=== PATIENT | male | born 1945 | race Caucasian/White ===

== ENCOUNTER 2020-05-24 13:43 | Inpatient (IN) | payer MEDICARE, OTHER ==
[~2020-05-24] VITALS: Ht 180.3 cm; Wt 99.8 kg
--- NOTE | 2020-05-24 18:30 | NUR ---
Pt arrived in [facility] via gurney, awake AOx4, on RA with no SOB or distress noted at this time. Complained of lower back pain s/p lumbar surgery. Oriented to room and unit policy. Call light within reach and belongings and walker at bedside. Bed locked in lowest position with siderails 2x up. Endorsed to automobile body repairer nurse
[2020-05-24] MEDS ORDERED: CLON0.1T PO (19:13)
[2020-05-24] MEDS ORDERED: LORA10TA7 PO (19:13)
[2020-05-24] MEDS ORDERED: GABA-532 PO (19:13)
[2020-05-24] MEDS ORDERED: TAMS-3 PO (19:13)
[2020-05-24] MEDS ORDERED: ALBU90AE2 INH (19:13)
[2020-05-24] MEDS ORDERED: FINA5TAB3 PO (19:13)
[2020-05-24] MEDS ORDERED: LACT1CAP73 PO (19:13)
[2020-05-24] MEDS ORDERED: MELA3TAB41 PO (19:13)
[2020-05-24] MEDS ORDERED: BACL10TA PO (19:13)
[2020-05-24] MEDS ORDERED: PANT40TA2 PO (19:13)
[2020-05-24] MEDS ORDERED: BIMA2.5D5 EACHEYE (19:13)
[2020-05-24] MEDS ORDERED: SENN-261 PO (19:13)
[2020-05-24] MEDS ORDERED: ATOR40TA PO (19:13)
[2020-05-24] MEDS ORDERED: OXYC1TAB12 PO (19:13)
[2020-05-24] MEDS ORDERED: OXCA150T5 PO (19:13)
[2020-05-24] MEDS ORDERED: CARV6.252 PO (19:13)
[2020-05-24] MEDS ORDERED: UMEC1BLS IH (19:13)
[2020-05-24] MEDS ORDERED: AMLO5TAB9 PO (19:13)
[2020-05-24] MEDS ORDERED: FERR325T28 PO (19:13)
[2020-05-24] MEDS ORDERED: FLUO40CA8 PO (19:13)
[2020-05-24] MEDS ORDERED: METF-494 PO (19:13)
[2020-05-24] MEDS ORDERED: BISA10SU61 RC (19:39)
[2020-05-24] MEDS ORDERED: ACET-2154 PO (19:39)
[2020-05-24] MEDS ORDERED: Z GUARD REMEDY PASTE 57 GM TUBE TOP PRN (20:45)
[2020-05-24 21:04] VITALS: BP 123/70
[2020-05-24] MEDS ORDERED: OXYCODONE/APAP 5-325 MG TABLET PO PRN (21:15)
[2020-05-24] MEDS: ATORVASTATIN 40 MG TABLET PO SCH (21:33)
[2020-05-24] MEDS: FINASTERIDE 5 MG TABLET PO SCH (21:33)
[2020-05-24] MEDS: LORATADINE 10 MG TABLET PO SCH (21:34)
[2020-05-24] MEDS: PANTOPRAZOLE SODIUM 40 MG TABLET.DR PO SCH (21:34)
[2020-05-24] MEDS: GABAPENTIN 300 MG CAPSULE PO SCH (21:34)
--- NOTE | 2020-05-24 21:43 | NUR ---
Received pt resting in bed and watching tv. AAO x3-4. No acute distress noted. Pertinent assessment done. Pt oriented to room and equipment. MRSA swab done. Provided dinner. Notified Dr. Harmon of admission, order to continue all meds. Dr. Bates also notified, new order to change pain medication from Percocet to oxycodone IR 10mg Q4H PRN instead. Safety measures maintained. Call light and personal items within reach. Will continue to monitor.
[2020-05-24] MEDS: OXYCODONE HCL 5 MG TABLET PO PRN (21:51)
[2020-05-25 05:06] VITALS: BP 125/75
[2020-05-25] MEDS: OXYCODONE HCL 5 MG TABLET PO PRN ×4 (05:19→21:05)
[2020-05-25 08:00] VITALS: BP 124/67
[2020-05-25] MEDS: GABAPENTIN 300 MG CAPSULE PO SCH ×2 (09:05→16:52)
[2020-05-25] MEDS: PANTOPRAZOLE SODIUM 40 MG TABLET.DR PO SCH ×2 (09:05→16:53)
--- NOTE | 2020-05-25 11:00 | NUR ---
Received patient in bed, patient is AAO x 4, NO acute distress noted, in RA. Vital signs stable. Patient able to express needs. S/P L4-S1 Laminectomy, Incision site on mid lower back with steri-strips and covered with dressing. Patient seen by MD with lab orders in AM and medications reconciled. Due morning meds administered, patient requested for pain pill before PT/OT, pt. administered OXYIR 10mg q 4hrs PRN and effective. Patient assisted with ADLs, safety measures in place, call light left at bed side and will continue with care.
[2020-05-25] MEDS ORDERED: CLONIDINE HCL 0.1 MG TABLET PO PRN (13:00)
[2020-05-25] MEDS ORDERED: BISACODYL 10 MG SUPP.RECT RC PRN (13:00)
[2020-05-25] MEDS ORDERED: BACLOFEN 10 MG TABLET PO PRN (13:00)
[2020-05-25] MEDS: IPRATROPIUM BROMIDE 0.5 MG/2.5 ML NEBU NEB SCH ×2 (15:33→19:22)
[2020-05-25] MEDS: ALBUTEROL SULFATE 2.5 MG/ 0.5 ML NEBU NEB SCH ×2 (15:33→19:22)
[2020-05-25 15:44] VITALS: BP 145/81
[2020-05-25] MEDS ORDERED: Medication Not On Formulary EA (Oxycodone Hcl/Acetaminophen (Oxycodone-Apap 10-325 Mg Ta PO SCH (16:00)
[2020-05-25] MEDS: TAMSULOSIN HCL 0.4 MG CAP.SR.24H PO SCH (16:52)
[2020-05-25] MEDS: ACIDOPHILUS/BULGARICUS CHEW TAB PO SCH (16:52)
[2020-05-25] MEDS: ACETAMINOPHEN 325 MG TABLET PO PRN (16:53)
[2020-05-25] MEDS: OXCARBAZEPINE 150 MG TABLET PO SCH (16:53)
[2020-05-25] MEDS ORDERED: GABAPENTIN 100 MG CAPSULE PO SCH (17:00)
[2020-05-25] MEDS: CARVEDILOL 6.25 MG TABLET PO SCH (17:06)
[2020-05-25 20:00] VITALS: BP 117/68
[2020-05-25] MEDS ORDERED: ATORVASTATIN 40 MG TABLET PO SCH (21:00)
[2020-05-25] MEDS ORDERED: FINASTERIDE 5 MG TABLET PO SCH (21:00)
[2020-05-25] MEDS ORDERED: LORATADINE 10 MG TABLET PO SCH (21:00)
[2020-05-25] MEDS: LATANOPROST OPHT DROP 2.5 ML BOTTLE OP SCH (21:06)
[2020-05-25] MEDS: ATORVASTATIN 40 MG TABLET PO SCH (21:06)
[2020-05-25] MEDS: FINASTERIDE 5 MG TABLET PO SCH (21:07)
[2020-05-25] MEDS: LORATADINE 10 MG TABLET PO SCH (21:07)
[2020-05-25] MEDS: MELATONIN 3 MG TABLET PO SCH (21:07)
--- NOTE | 2020-05-25 21:30 | NUR ---
Received patient in bed, patient is AAO x 4, NO acute distress noted, no SOb noted on RA. Vital signs stable. Patient able to express needs. Due medications administered, patient requested for pain pill, administered OXY 10mg PRN. All needs attended to, kept comfortable. Safety measures in place, call light left at bed side and will continue with care.
[2020-05-26] MEDS: IPRATROPIUM BROMIDE 0.5 MG/2.5 ML NEBU NEB SCH ×4 (01:30→19:28)
[2020-05-26] MEDS: ALBUTEROL SULFATE 2.5 MG/ 0.5 ML NEBU NEB SCH ×4 (01:30→19:28)
[2020-05-26 04:00] VITALS: BP 118/71
[2020-05-26] MEDS: OXYCODONE HCL 5 MG TABLET PO PRN ×4 (05:37→20:18)
[2020-05-26 06:01] LABS: BASOPHILS % (AUTO) 0.4 % (0.0-2.0); EOSINOPHILS # (AUTO) 0.3 K/uL (0.0-0.7); EOSINOPHILS % (AUTO) 3.3 % (0.0-7.0); HEMATOCRIT 22.7 % (36.7-47.1); HEMOGLOBIN 7.5 g/dL (12.5-16.3); LYMPHOCYTES # (AUTO) 1.7 K/uL (20.0-40.0); LYMPHOCYTES % (AUTO) 22.1 % (20.5-51.5); MEAN CORPUSCULAR HEMOGLOBIN 30.2 uug (23.8-33.4); MEAN CORPUSCULAR HGB CONC 33 g/dL (32.5-36.3); MEAN CORPUSCULAR VOLUME 91.7 fL (73.0-96.2); MONOCYTES # (AUTO) 1.1 K/uL (2.0-10.0); MONOCYTES % (AUTO) 14.7 % (0.0-11.0); NEUTROPHILS # (AUTO) 4.5 K/uL (1.8-8.9); NEUTROPHILS % (AUTO) 59.5 % (38.5-71.5); PLATELET COUNT (AUTO) 183 K/uL (152-348); WHITE BLOOD COUNT (AUTO) 7.5 K/uL (3.6-10.2)
[2020-05-26 06:37] LABS: RED BLOOD CELL COUNT(AUTO) 2.47 MIL/uL (4.06-5.63)
[2020-05-26 06:57] LABS: CARBON DIOXIDE 24 mmol/L (21-32); CHLORIDE 101 mmol/L (98-107); CREATININE 1.4 mg/dL (0.6-1.3); FERRITIN 467 ng/mL (26-388); GLUCOSE 112 mg/dL (74-106); MAGNESIUM 1.7 mg/dL (1.8-2.4); PHOSPHOROUS 4.2 mg/dL (2.5-4.9); POTASSIUM 4.9 mmol/L (3.5-5.1); UREA NITROGEN, BLOOD 30 mg/dL (7-18)
[2020-05-26] MEDS ORDERED: PANTOPRAZOLE SODIUM 40 MG TABLET.DR PO SCH (07:30)
[2020-05-26 08:00] VITALS: BP 121/67
[2020-05-26 08:07] LABS: IRON, SERUM 13 ug/dL (50-175)
[2020-05-26] MEDS: FLUOXETINE HCL 20 MG CAPSULE PO SCH (08:30)
[2020-05-26] MEDS: GABAPENTIN 300 MG CAPSULE PO SCH ×2 (08:30→16:37)
[2020-05-26] MEDS: ACIDOPHILUS/BULGARICUS CHEW TAB PO SCH ×2 (08:30→16:37)
[2020-05-26] MEDS: TAMSULOSIN HCL 0.4 MG CAP.SR.24H PO SCH ×2 (08:30→16:37)
[2020-05-26] MEDS: ACETAMINOPHEN 325 MG TABLET PO PRN ×2 (08:31→21:37)
[2020-05-26] MEDS: CARVEDILOL 6.25 MG TABLET PO SCH ×2 (08:32→18:23)
[2020-05-26] MEDS: OXCARBAZEPINE 150 MG TABLET PO SCH ×2 (08:32→16:40)
[2020-05-26] MEDS: AMLODIPINE 5 MG TABLET PO SCH (08:32)
[2020-05-26] MEDS: METFORMIN XR 500 MG TAB.SR.24H PO SCH (08:33)
[2020-05-26] MEDS ORDERED: FERROUS SULFATE 325 MG TABEC PO SCH (09:00)
[2020-05-26] MEDS ORDERED: MAGNESIUM OXIDE 400 MG TABLET PO ONE (09:30)
[2020-05-26] MEDS: PANTOPRAZOLE SODIUM 40 MG TABLET.DR PO SCH ×2 (11:09→16:37)
[2020-05-26] MEDS ORDERED: SOD FERRIC GLUC COMPLX/SUCROSE 125 MG in IV NORMAL SALINE 100 ML IV SCH (14:00)
--- NOTE | 2020-05-26 15:55 | NUR ---
Pt received resting in bed, assessed, AOx4, no acute distress, and no SOB. Pt requested pain medication, PRN Oxy 10 mg administered as ordered following therapy. Therapist assisted Pt to shower, original dressed waterproofed, kept clean, dry, and intact. Back brace applied for transfers. Pt compliant with therapies as offered and cooperative with scheduled medication.Pt able to make needs known. All comfort and safety measures implemented. 22 linda IV started on right hand for newly ordered medication. Call light placed within reach. Will continue to monitor safety.
[2020-05-26 16:11] VITALS: BP 122/68
[2020-05-26] MEDS: BACLOFEN 10 MG TABLET PO PRN (16:37)
--- NOTE | 2020-05-26 19:38 | NUR ---
Received patient in bed, patient is AAO x 4, No acute distress noted, no SOB noted on RA. Patient refused breathing treatment. Vital signs stable.Denies any pain at this time. Patient able to express needs. Safety measures in place, call light and all personal items within pt reach. Will continue with care.
[2020-05-26 20:06] VITALS: BP 122/66
[2020-05-26] MEDS: MELATONIN 3 MG TABLET PO SCH (20:14)
[2020-05-26] MEDS: ATORVASTATIN 40 MG TABLET PO SCH (20:14)
[2020-05-26] MEDS: LORATADINE 10 MG TABLET PO SCH (20:14)
[2020-05-26] MEDS: FINASTERIDE 5 MG TABLET PO SCH (20:14)
[2020-05-26] MEDS: LATANOPROST OPHT DROP 2.5 ML BOTTLE OP SCH (20:15)
[2020-05-27] MEDS: OXYCODONE HCL 5 MG TABLET PO PRN ×4 (00:29→18:59)
[2020-05-27] MEDS: ALBUTEROL SULFATE 2.5 MG/ 0.5 ML NEBU NEB SCH ×4 (01:11→19:17)
[2020-05-27] MEDS: IPRATROPIUM BROMIDE 0.5 MG/2.5 ML NEBU NEB SCH ×4 (01:11→19:17)
--- NOTE | 2020-05-27 05:30 | NUR ---
Patient slept though the night. No acute distress noted, no SOB noted on RA. Vital signs stable. Patient able to express needs. Due medications administered, patient requested pain pill, administered OXY 10mg PRN. All needs attended to, kept comfortable. Safety measures in place, call light left at bed side and will continue with care.
[2020-05-27 05:45] VITALS: BP 126/71
[2020-05-27 08:00] VITALS: BP 121/75
[2020-05-27] MEDS: PANTOPRAZOLE SODIUM 40 MG TABLET.DR PO SCH ×2 (08:45→17:04)
[2020-05-27] MEDS: FLUOXETINE HCL 20 MG CAPSULE PO SCH (08:45)
[2020-05-27] MEDS: TAMSULOSIN HCL 0.4 MG CAP.SR.24H PO SCH ×2 (08:46→17:04)
[2020-05-27] MEDS: ACIDOPHILUS/BULGARICUS CHEW TAB PO SCH ×2 (08:46→17:04)
[2020-05-27] MEDS: CARVEDILOL 6.25 MG TABLET PO SCH ×2 (08:46→17:04)
[2020-05-27] MEDS: OXCARBAZEPINE 150 MG TABLET PO SCH ×2 (08:46→17:04)
[2020-05-27] MEDS: GABAPENTIN 300 MG CAPSULE PO SCH ×2 (08:46→17:04)
[2020-05-27] MEDS: METFORMIN XR 500 MG TAB.SR.24H PO SCH (08:46)
[2020-05-27] MEDS: AMLODIPINE 5 MG TABLET PO SCH (08:47)
--- NOTE | 2020-05-27 14:40 | NUR ---
Patient refused due IV Ferlecit and requested PO iron. Dr. Harmon saw and spoke with the patient. MD ordered to discontinue IV line and stated that he will change Ferlecit to PO. Also MD ordered to change diet to regular diet.
[2020-05-27 16:00] VITALS: BP 115/71
--- NOTE | 2020-05-27 18:25 | NUR ---
Patient remains alert, oriented x 4, not in any form of distress, on room air. No changes noted during the shift. He complained of low back pain, given PRN pain medication as ordered with noted relief. Assisted with his needs promptly. Call light and frequently used items placed within patient's reach. Will continue to monitor and will endorse accordingly.
[2020-05-27 20:00] VITALS: BP 119/64
[2020-05-27] MEDS: LATANOPROST OPHT DROP 2.5 ML BOTTLE OP SCH (20:37)
[2020-05-27] MEDS: FERROUS SULFATE 325 MG TABEC PO SCH (20:37)
[2020-05-27] MEDS: FINASTERIDE 5 MG TABLET PO SCH (20:37)
[2020-05-27] MEDS: LORATADINE 10 MG TABLET PO SCH (20:37)
[2020-05-27] MEDS: MELATONIN 3 MG TABLET PO SCH (20:38)
[2020-05-27] MEDS: ATORVASTATIN 40 MG TABLET PO SCH (20:38)
--- NOTE | 2020-05-27 20:56 | NUR ---
Received pt sleeping comfortably. Aroused easily to verbal stimuli. Alert and oriented x4. No acute distress noted. Denies pain/ discomfort. Due meds given as ordered. Safety measures maintained. Call light and personal items within reach. Will continue to monitor.
[2020-05-28] MEDS: ALBUTEROL SULFATE 2.5 MG/ 0.5 ML NEBU NEB SCH ×5 (00:30→20:40)
[2020-05-28] MEDS: IPRATROPIUM BROMIDE 0.5 MG/2.5 ML NEBU NEB SCH ×5 (00:30→20:40)
[2020-05-28 04:00] VITALS: BP 105/55
[2020-05-28] MEDS: OXYCODONE HCL 5 MG TABLET PO PRN ×2 (05:32→13:43)
[2020-05-28 07:30] VITALS: BP 114/68
[2020-05-28] MEDS: PANTOPRAZOLE SODIUM 40 MG TABLET.DR PO SCH ×2 (08:30→17:10)
[2020-05-28] MEDS: CARVEDILOL 6.25 MG TABLET PO SCH ×2 (08:30→17:12)
[2020-05-28] MEDS: GABAPENTIN 300 MG CAPSULE PO SCH ×2 (08:31→17:10)
[2020-05-28] MEDS: TAMSULOSIN HCL 0.4 MG CAP.SR.24H PO SCH ×2 (08:31→17:10)
[2020-05-28] MEDS: FLUOXETINE HCL 20 MG CAPSULE PO SCH (08:31)
[2020-05-28] MEDS: ACIDOPHILUS/BULGARICUS CHEW TAB PO SCH ×2 (08:31→17:10)
[2020-05-28] MEDS: FERROUS SULFATE 325 MG TABEC PO SCH ×2 (08:31→20:17)
[2020-05-28] MEDS: METFORMIN XR 500 MG TAB.SR.24H PO SCH (08:32)
[2020-05-28] MEDS: OXCARBAZEPINE 150 MG TABLET PO SCH ×2 (08:32→17:12)
[2020-05-28] MEDS: AMLODIPINE 5 MG TABLET PO SCH (09:00)
[2020-05-28 15:41] LABS: *OCCULT BLOOD STOOL NEGATIVE (NEGATIVE)
[2020-05-28 15:53] VITALS: BP 127/67
--- NOTE | 2020-05-28 19:35 | NUR ---
Sleeping during initial rounds. No s/s of respiratory distress noted. HOB slightly elevated. Safety measures and fall prevention maintained. Continue care as planned.
[2020-05-28 20:00] VITALS: BP 101/65
[2020-05-28] MEDS: MELATONIN 3 MG TABLET PO SCH (20:17)
[2020-05-28] MEDS: FINASTERIDE 5 MG TABLET PO SCH (20:17)
[2020-05-28] MEDS: LORATADINE 10 MG TABLET PO SCH (20:17)
[2020-05-28] MEDS: ATORVASTATIN 40 MG TABLET PO SCH (20:17)
[2020-05-28] MEDS: LATANOPROST OPHT DROP 2.5 ML BOTTLE OP SCH (20:18)
[2020-05-29] MEDS: IPRATROPIUM BROMIDE 0.5 MG/2.5 ML NEBU NEB SCH ×4 (01:30→18:58)
[2020-05-29] MEDS: ALBUTEROL SULFATE 2.5 MG/ 0.5 ML NEBU NEB SCH ×4 (01:30→18:58)
[2020-05-29] MEDS: OXYCODONE HCL 5 MG TABLET PO PRN ×3 (02:53→16:02)
[2020-05-29 04:00] VITALS: BP 106/71
--- NOTE | 2020-05-29 06:18 | NUR ---
Shift End Report: VS stable. Slept well. Medicated once for complaint of pain with relief. No further complaint presented. All needs attended and met. No significant event reported. Continue current rehab plan of care.
[2020-05-29 08:00] VITALS: BP 122/62
[2020-05-29] MEDS: FERROUS SULFATE 325 MG TABEC PO SCH ×2 (08:26→20:21)
[2020-05-29] MEDS: FLUOXETINE HCL 20 MG CAPSULE PO SCH (08:26)
[2020-05-29] MEDS: TAMSULOSIN HCL 0.4 MG CAP.SR.24H PO SCH ×2 (08:26→16:03)
[2020-05-29] MEDS: ACIDOPHILUS/BULGARICUS CHEW TAB PO SCH ×2 (08:26→16:03)
[2020-05-29] MEDS: GABAPENTIN 300 MG CAPSULE PO SCH ×2 (08:26→16:02)
[2020-05-29] MEDS: PANTOPRAZOLE SODIUM 40 MG TABLET.DR PO SCH ×2 (08:27→16:02)
[2020-05-29] MEDS: AMLODIPINE 5 MG TABLET PO SCH (08:28)
[2020-05-29] MEDS: CARVEDILOL 6.25 MG TABLET PO SCH ×2 (08:28→17:01)
[2020-05-29] MEDS: OXCARBAZEPINE 150 MG TABLET PO SCH ×2 (08:29→16:45)
[2020-05-29] MEDS: METFORMIN XR 500 MG TAB.SR.24H PO SCH (09:37)
--- NOTE | 2020-05-29 14:08 | NUR ---
patient is alert, oriented x4, no sob, resp even nonlabored,skin warm and dry to touch, patient seems tran and sad facial expressions at times, encouraged patient to express his feelings, refused breakfast, offered different choices, patient stated he is not hungry and does not want to eat, however patient ate his lunch and participated with PT, OT services, tolerated well, no new skin issues noted at this time.
[2020-05-29 15:57] VITALS: BP 121/74
--- NOTE | 2020-05-29 17:35 | NUR ---
left message to dr sumner to adjust patient pain medication, per patient he would like to have more pain medication, waiting for response, will endorse accordingly
[2020-05-29] MEDS: MELATONIN 3 MG TABLET PO SCH (20:20)
[2020-05-29] MEDS: FINASTERIDE 5 MG TABLET PO SCH (20:20)
[2020-05-29] MEDS: LORATADINE 10 MG TABLET PO SCH (20:20)
[2020-05-29] MEDS: MORPHINE SULFATE SR 15 MG TABLET.SA PO SCH (20:20)
[2020-05-29] MEDS: ATORVASTATIN 40 MG TABLET PO SCH (20:21)
[2020-05-29] MEDS: LATANOPROST OPHT DROP 2.5 ML BOTTLE OP SCH (20:21)
[2020-05-29 20:28] VITALS: BP 124/65
--- NOTE | 2020-05-29 23:00 | NUR ---
Received patient in bed, patient is AAO x 4, No acute distress noted, no SOB noted on RA. Vital signs stable.D Complains of pain, administered scheduled pain medication. All due medication administered and tolerated. Patient able to express needs, all needs attended to promptly. Safety measures in place, call light and all personal items within pt reach. Will continue with care.
[2020-05-30] MEDS: ALBUTEROL SULFATE 2.5 MG/ 0.5 ML NEBU NEB SCH ×4 (00:31→18:44)
[2020-05-30] MEDS: IPRATROPIUM BROMIDE 0.5 MG/2.5 ML NEBU NEB SCH ×4 (00:31→18:44)
[2020-05-30] MEDS: OXYCODONE HCL 5 MG TABLET PO PRN ×3 (01:09→14:16)
[2020-05-30 05:04] VITALS: BP 109/64
[2020-05-30 07:32] VITALS: BP 120/69
[2020-05-30] MEDS: ACIDOPHILUS/BULGARICUS CHEW TAB PO SCH ×2 (08:38→17:39)
[2020-05-30] MEDS: GABAPENTIN 300 MG CAPSULE PO SCH ×2 (08:38→17:39)
[2020-05-30] MEDS: AMLODIPINE 5 MG TABLET PO SCH (08:39)
[2020-05-30] MEDS: PANTOPRAZOLE SODIUM 40 MG TABLET.DR PO SCH ×2 (08:39→17:40)
[2020-05-30] MEDS: CARVEDILOL 6.25 MG TABLET PO SCH ×2 (08:39→17:41)
[2020-05-30] MEDS: FERROUS SULFATE 325 MG TABEC PO SCH ×2 (08:39→20:32)
[2020-05-30] MEDS: TAMSULOSIN HCL 0.4 MG CAP.SR.24H PO SCH ×2 (08:39→17:39)
[2020-05-30] MEDS: FLUOXETINE HCL 20 MG CAPSULE PO SCH (08:39)
[2020-05-30] MEDS: METFORMIN XR 500 MG TAB.SR.24H PO SCH (08:40)
[2020-05-30] MEDS: OXCARBAZEPINE 150 MG TABLET PO SCH ×2 (08:40→17:39)
[2020-05-30] MEDS: MORPHINE SULFATE SR 15 MG TABLET.SA PO SCH ×2 (08:48→20:32)
[2020-05-30 14:28] VITALS: BP 115/60
--- NOTE | 2020-05-30 18:20 | NUR ---
Patient remains alert, oriented x 4, not in any form of distress. Compliant with medications and tolerated well. Complained of back pain, given PRN pain medication as ordered with noted relief. Patient participated with PT, OT, and ST services and tolerated. Needs attended to promptly. Call light and frequently used items placed within patient's reach. Will continue to monitor and will endorse accordingly.
--- NOTE | 2020-05-30 19:14 | NUR ---
Patient refused resp neb txs.
[2020-05-30 19:48] VITALS: BP 100/66
[2020-05-30] MEDS: MELATONIN 3 MG TABLET PO SCH (20:32)
[2020-05-30] MEDS: ATORVASTATIN 40 MG TABLET PO SCH (20:32)
[2020-05-30] MEDS: LORATADINE 10 MG TABLET PO SCH (20:32)
[2020-05-30] MEDS: FINASTERIDE 5 MG TABLET PO SCH (20:33)
[2020-05-30] MEDS: LATANOPROST OPHT DROP 2.5 ML BOTTLE OP SCH (20:33)
--- NOTE | 2020-05-30 22:00 | NUR ---
Patient is AAO x 4, No acute distress noted, no SOB noted on RA. Vital signs stable.Complains of pain, administered scheduled pain medication. All due medication administered and tolerated. Patient able to express needs, all needs attended to promptly. Safety measures in place, call light and all personal items within pt reach. Will continue with care.
[2020-05-31] MEDS: ALBUTEROL SULFATE 2.5 MG/ 0.5 ML NEBU NEB SCH ×2 (00:43→07:35)
[2020-05-31] MEDS: IPRATROPIUM BROMIDE 0.5 MG/2.5 ML NEBU NEB SCH ×2 (00:43→07:35)
[2020-05-31] MEDS: OXYCODONE HCL 5 MG TABLET PO PRN ×3 (02:11→19:56)
[2020-05-31 04:40] VITALS: BP 129/66
[2020-05-31] MEDS: GABAPENTIN 300 MG CAPSULE PO SCH ×2 (08:00→16:03)
[2020-05-31] MEDS: TAMSULOSIN HCL 0.4 MG CAP.SR.24H PO SCH ×2 (08:00→16:03)
[2020-05-31] MEDS: ACIDOPHILUS/BULGARICUS CHEW TAB PO SCH ×2 (08:00→16:03)
[2020-05-31] MEDS: MORPHINE SULFATE SR 15 MG TABLET.SA PO SCH ×2 (08:00→21:11)
[2020-05-31] MEDS: FERROUS SULFATE 325 MG TABEC PO SCH ×2 (08:00→21:06)
[2020-05-31] MEDS: CARVEDILOL 6.25 MG TABLET PO SCH ×2 (08:01→17:30)
[2020-05-31] MEDS: PANTOPRAZOLE SODIUM 40 MG TABLET.DR PO SCH ×2 (08:01→16:04)
[2020-05-31] MEDS: AMLODIPINE 5 MG TABLET PO SCH (08:01)
[2020-05-31] MEDS: FLUOXETINE HCL 20 MG CAPSULE PO SCH (08:01)
[2020-05-31] MEDS: METFORMIN XR 500 MG TAB.SR.24H PO SCH (08:02)
[2020-05-31] MEDS: OXCARBAZEPINE 150 MG TABLET PO SCH ×2 (08:02→16:14)
[2020-05-31 08:18] VITALS: BP 111/62
[2020-05-31] MEDS ORDERED: IPRATROPIUM BROMIDE 0.5 MG/2.5 ML NEBU NEB PRN (10:00)
[2020-05-31] MEDS ORDERED: ALBUTEROL SULFATE 2.5 MG/ 0.5 ML NEBU NEB PRN (10:00)
--- NOTE | 2020-05-31 10:00 | NUR ---
convinced patient to sit in chair and stretch out, patient was resisting, but agreed to do it, patient transferred to chair, and ready for PT, OT services for more exercises.
[2020-05-31 12:22] LABS: BASOPHILS % (AUTO) 0.6 % (0.0-2.0); EOSINOPHILS # (AUTO) 0.3 K/uL (0.0-0.7); EOSINOPHILS % (AUTO) 3.4 % (0.0-7.0); HEMATOCRIT 26.8 % (36.7-47.1); HEMOGLOBIN 8.8 g/dL (12.5-16.3); LYMPHOCYTES # (AUTO) 1.4 K/uL (20.0-40.0); LYMPHOCYTES % (AUTO) 16.6 % (20.5-51.5); MEAN CORPUSCULAR HEMOGLOBIN 29.6 uug (23.8-33.4); MEAN CORPUSCULAR HGB CONC 33 g/dL (32.5-36.3); MEAN CORPUSCULAR VOLUME 90.5 fL (73.0-96.2); MONOCYTES # (AUTO) 0.8 K/uL (2.0-10.0); MONOCYTES % (AUTO) 9.4 % (0.0-11.0); NEUTROPHILS # (AUTO) 5.9 K/uL (1.8-8.9); PLATELET COUNT (AUTO) 326 K/uL (152-348); RED BLOOD CELL COUNT(AUTO) 2.96 MIL/uL (4.06-5.63); WHITE BLOOD COUNT (AUTO) 8.4 K/uL (3.6-10.2)
[2020-05-31 12:32] LABS: CARBON DIOXIDE 23 mmol/L (21-32); CHLORIDE 101 mmol/L (98-107); CREATININE 1.4 mg/dL (0.6-1.3); GLUCOSE 108 mg/dL (74-106); POTASSIUM 3.9 mmol/L (3.5-5.1); UREA NITROGEN, BLOOD 28 mg/dL (7-18)
--- NOTE | 2020-05-31 13:44 | NUR ---
INTERDISCIPLINARY TEAM CONFERENCE
--- NOTE | 2020-05-31 15:54 | NUR ---
PATIENT IS ALERT, ORIENTED X4, NO SOB, RESP EVEN NONLABORED, SKIN WARM AND DRY TO TOUCH, NO DISTRESS NOTED, PARTICIPATED IN PT, OT SERVICES, INCISION SITE IS CLEAN AND DRY, NO SIGNS AND SYMPTOMS OF INFECTION NOTED, SUCH NO REDNESS, NO DISCHARGE, NO LOCALIZED HEAT UPON TOUCH. PAIN IS MANAGED WITH PAIN MEDICATION AND WITH DISTRACTION. CONTINUE TO MONITOR
[2020-05-31 15:57] VITALS: BP 134/72
--- NOTE | 2020-05-31 19:56 | NUR ---
Patient is A/O x 4, on RA, No SOB or acute distress noted. Vital signs stable. Pt reported sharp back pain of level 7/10. Oxycodone 10 mg administered by Mumtaz Adrian RN per MD PRN order. All needs attended to promptly. All safety measures in place. Call light and all personal items within pt reach. Will continue with care and monitoring.
[2020-05-31 20:14] VITALS: BP 119/64
--- NOTE | 2020-05-31 20:56 | NUR ---
Pt denied any pain or discomfort at this time for pain reassessment. Pt intermittently asleep. Pt care and monitoring continued.
[2020-05-31] MEDS: LATANOPROST OPHT DROP 2.5 ML BOTTLE OP SCH (21:06)
[2020-05-31] MEDS: ATORVASTATIN 40 MG TABLET PO SCH (21:06)
[2020-05-31] MEDS: LORATADINE 10 MG TABLET PO SCH (21:06)
[2020-05-31] MEDS: MELATONIN 3 MG TABLET PO SCH (21:07)
[2020-05-31] MEDS: FINASTERIDE 5 MG TABLET PO SCH (21:07)
--- NOTE | 2020-05-31 21:51 | NUR ---
SBAR report given to SUSAN Peralta for continuity of care.
--- NOTE | 2020-05-31 21:51 | NUR ---
Take over report received from the outgoing RN. Received patient awake, alert, watching TV at this time. Denies any pain/discomforts at this time. Continue care as planned.
[2020-06-01 05:38] VITALS: BP 115/65
[2020-06-01] MEDS: OXYCODONE HCL 5 MG TABLET PO PRN ×2 (05:45→17:54)
--- NOTE | 2020-06-01 06:28 | NUR ---
Shift End Report:Slept good. Medicated once for low back pain with relief. No further complaint presented. All needs attended and met. No significant event reported all night. Continue current rehab plan of care.
[2020-06-01 08:00] VITALS: BP 157/74
[2020-06-01] MEDS: FLUOXETINE HCL 20 MG CAPSULE PO SCH (09:08)
[2020-06-01] MEDS: MORPHINE SULFATE SR 15 MG TABLET.SA PO SCH ×2 (09:09→20:23)
[2020-06-01] MEDS: PANTOPRAZOLE SODIUM 40 MG TABLET.DR PO SCH ×2 (09:10→17:31)
[2020-06-01] MEDS: GABAPENTIN 300 MG CAPSULE PO SCH ×2 (09:10→17:32)
[2020-06-01] MEDS: ACIDOPHILUS/BULGARICUS CHEW TAB PO SCH ×2 (09:10→17:31)
[2020-06-01] MEDS: CARVEDILOL 6.25 MG TABLET PO SCH ×2 (09:12→17:32)
[2020-06-01] MEDS: FERROUS SULFATE 325 MG TABEC PO SCH ×2 (09:13→20:23)
[2020-06-01] MEDS: AMLODIPINE 5 MG TABLET PO SCH (09:13)
[2020-06-01] MEDS: OXCARBAZEPINE 150 MG TABLET PO SCH ×2 (09:14→17:34)
[2020-06-01] MEDS: METFORMIN XR 500 MG TAB.SR.24H PO SCH (09:14)
[2020-06-01] MEDS: TAMSULOSIN HCL 0.4 MG CAP.SR.24H PO SCH ×2 (09:14→17:31)
[2020-06-01] MEDS: SENNOSIDES 1 TABLET PO PRN ×2 (15:07→17:37)
[2020-06-01 16:05] VITALS: BP 126/71
--- NOTE | 2020-06-01 19:30 | NUR ---
Sleeping during initial rounds. Safety measures and fall prevention maintained. Continue care as planned.
[2020-06-01 20:00] VITALS: BP 106/67
[2020-06-01] MEDS: ATORVASTATIN 40 MG TABLET PO SCH (20:23)
[2020-06-01] MEDS: MELATONIN 3 MG TABLET PO SCH (20:23)
[2020-06-01] MEDS: LORATADINE 10 MG TABLET PO SCH (20:23)
[2020-06-01] MEDS: FINASTERIDE 5 MG TABLET PO SCH (20:24)
[2020-06-01] MEDS: LATANOPROST OPHT DROP 2.5 ML BOTTLE OP SCH (20:24)
[2020-06-02] MEDS: OXYCODONE HCL 5 MG TABLET PO PRN ×3 (02:30→23:33)
[2020-06-02 04:00] VITALS: BP 112/72
--- NOTE | 2020-06-02 06:50 | NUR ---
Shift End Report: Vs stable. Medicated once for pain with relief. No further complaint presented. All needs attended and met. No significant event reported. Continue current rehab plan of care. Slept well.
[2020-06-02 08:00] VITALS: BP 119/64
[2020-06-02] MEDS: GABAPENTIN 300 MG CAPSULE PO SCH ×2 (08:23→17:28)
[2020-06-02] MEDS: FERROUS SULFATE 325 MG TABEC PO SCH ×2 (08:23→20:22)
[2020-06-02] MEDS: PANTOPRAZOLE SODIUM 40 MG TABLET.DR PO SCH ×2 (08:24→17:28)
[2020-06-02] MEDS: ACIDOPHILUS/BULGARICUS CHEW TAB PO SCH ×2 (08:25→17:26)
[2020-06-02] MEDS: OXCARBAZEPINE 150 MG TABLET PO SCH ×2 (08:25→17:26)
[2020-06-02] MEDS: AMLODIPINE 5 MG TABLET PO SCH (08:25)
[2020-06-02] MEDS: METFORMIN XR 500 MG TAB.SR.24H PO SCH (08:25)
[2020-06-02] MEDS: FLUOXETINE HCL 20 MG CAPSULE PO SCH (08:25)
[2020-06-02] MEDS: TAMSULOSIN HCL 0.4 MG CAP.SR.24H PO SCH ×2 (08:25→17:26)
[2020-06-02] MEDS: CARVEDILOL 6.25 MG TABLET PO SCH ×2 (08:26→17:27)
[2020-06-02] MEDS: MORPHINE SULFATE SR 15 MG TABLET.SA PO SCH ×2 (08:27→20:22)
[2020-06-02 16:00] VITALS: BP 117/69
[2020-06-02 20:00] VITALS: BP 117/64
[2020-06-02] MEDS: MELATONIN 3 MG TABLET PO SCH (20:22)
[2020-06-02] MEDS: FINASTERIDE 5 MG TABLET PO SCH (20:22)
[2020-06-02] MEDS: LORATADINE 10 MG TABLET PO SCH (20:22)
[2020-06-02] MEDS: ATORVASTATIN 40 MG TABLET PO SCH (20:22)
[2020-06-02] MEDS: LATANOPROST OPHT DROP 2.5 ML BOTTLE OP SCH (20:23)
--- NOTE | 2020-06-02 20:31 | NUR ---
Received patient awake,in bed, watching TV at this time. No s/s of respiratory distress. Denies any pain/discomforts. Safety measure and fall prevention maintained. Continue care as planned.
[2020-06-03 04:00] VITALS: BP 119/67
--- NOTE | 2020-06-03 05:36 | NUR ---
Shift End Report: Slept good. VS stable. Medicated once with OxyIR with relief. No further complaint presented. All needs attended and met. No significant event reported all night. Continue current rehab plan of care.
[2020-06-03 07:30] VITALS: BP 116/73
[2020-06-03] MEDS: PANTOPRAZOLE SODIUM 40 MG TABLET.DR PO SCH ×2 (08:21→17:09)
[2020-06-03] MEDS: GABAPENTIN 300 MG CAPSULE PO SCH ×2 (08:21→17:08)
[2020-06-03] MEDS: FLUOXETINE HCL 20 MG CAPSULE PO SCH (08:21)
[2020-06-03] MEDS: ACIDOPHILUS/BULGARICUS CHEW TAB PO SCH ×2 (08:21→17:08)
[2020-06-03] MEDS: FERROUS SULFATE 325 MG TABEC PO SCH ×2 (08:22→20:11)
[2020-06-03] MEDS: MORPHINE SULFATE SR 15 MG TABLET.SA PO SCH ×3 (08:23→20:11)
[2020-06-03] MEDS: AMLODIPINE 5 MG TABLET PO SCH (08:26)
[2020-06-03] MEDS: CARVEDILOL 6.25 MG TABLET PO SCH ×2 (08:27→17:08)
[2020-06-03] MEDS: METFORMIN XR 500 MG TAB.SR.24H PO SCH (08:27)
[2020-06-03] MEDS: TAMSULOSIN HCL 0.4 MG CAP.SR.24H PO SCH ×2 (08:27→17:09)
[2020-06-03] MEDS: OXCARBAZEPINE 150 MG TABLET PO SCH ×2 (08:27→17:08)
[2020-06-03] MEDS: OXYCODONE HCL 5 MG TABLET PO PRN ×2 (11:50→16:34)
--- NOTE | 2020-06-03 12:10 | NUR ---
Received patient awake in bed. AOX4 in stable condition. no complaint of pain.discomfort noted. Patient for discharge today around2-3pm. MD Lopez notified. TMS done, discharge prescription and summary discuss and given to patient. verbalize understanding. Patient last day of therapy tolerated well. will continue monitor Addendum: 06/03/20 at 1516 by YON SAENZ RN RN ERROR
[2020-06-03 15:49] VITALS: BP 132/70
--- NOTE | 2020-06-03 15:51 | NUR ---
Patient AOX4 in stable condition. Continue participates in therapy for increase strenght and increase endurance. Patient continue pain management prior to therapy and if needed with good effect. not in distress. will continue monitor
[2020-06-03 20:00] VITALS: BP 128/72
[2020-06-03] MEDS: MELATONIN 3 MG TABLET PO SCH (20:11)
[2020-06-03] MEDS: LATANOPROST OPHT DROP 2.5 ML BOTTLE OP SCH (20:11)
[2020-06-03] MEDS: FINASTERIDE 5 MG TABLET PO SCH (20:11)
[2020-06-03] MEDS: LORATADINE 10 MG TABLET PO SCH (20:11)
[2020-06-03] MEDS: ATORVASTATIN 40 MG TABLET PO SCH (20:11)
--- NOTE | 2020-06-03 20:48 | NUR ---
Received pt resting in bed and watching tv. AAO x4. No acute distress noted. Complaint of 8/10 pain on the back, routine pain med given. Other scheduled meds also given as ordered. Safety measures maintained. Call light and personal items within reach. Will continue to monitor.
[2020-06-04 04:00] VITALS: BP 124/65
[2020-06-04] MEDS: OXYCODONE HCL 5 MG TABLET PO PRN ×3 (04:01→17:38)
[2020-06-04 07:30] VITALS: BP 111/66
[2020-06-04] MEDS: CARVEDILOL 6.25 MG TABLET PO SCH ×2 (08:00→17:15)
[2020-06-04] MEDS: FLUOXETINE HCL 20 MG CAPSULE PO SCH (08:48)
[2020-06-04] MEDS: TAMSULOSIN HCL 0.4 MG CAP.SR.24H PO SCH ×2 (08:48→17:13)
[2020-06-04] MEDS: MORPHINE SULFATE SR 15 MG TABLET.SA PO SCH ×2 (08:48→20:28)
[2020-06-04] MEDS: PANTOPRAZOLE SODIUM 40 MG TABLET.DR PO SCH ×2 (08:48→17:13)
[2020-06-04] MEDS: GABAPENTIN 300 MG CAPSULE PO SCH ×2 (08:48→17:13)
[2020-06-04] MEDS: AMLODIPINE 5 MG TABLET PO SCH (08:49)
[2020-06-04] MEDS: FERROUS SULFATE 325 MG TABEC PO SCH ×2 (08:49→20:27)
[2020-06-04] MEDS: ACIDOPHILUS/BULGARICUS CHEW TAB PO SCH ×2 (08:49→17:13)
[2020-06-04] MEDS: METFORMIN XR 500 MG TAB.SR.24H PO SCH (08:50)
[2020-06-04] MEDS: OXCARBAZEPINE 150 MG TABLET PO SCH ×2 (08:50→17:13)
[2020-06-04 16:00] VITALS: BP 133/72
--- NOTE | 2020-06-04 18:37 | NUR ---
Patient remains alert, oriented x 4 not in any form of distress, on room air. Due medications administered and tolerated well. Patient complained of low back pain, given PRN pain medication as ordered. Surgical incision well coaptated, dry, no signs of infection. Needs attended to promptly. Offered senokot for no BM x 3 days but patient refused. Explained risk Call light and frequently used items placed within patient's reach. Safety measures maintained.
[2020-06-04 20:18] VITALS: BP 113/71
[2020-06-04] MEDS: ATORVASTATIN 40 MG TABLET PO SCH (20:27)
[2020-06-04] MEDS: FINASTERIDE 5 MG TABLET PO SCH (20:27)
[2020-06-04] MEDS: LORATADINE 10 MG TABLET PO SCH (20:27)
[2020-06-04] MEDS: MELATONIN 3 MG TABLET PO SCH (20:28)
[2020-06-04] MEDS: LATANOPROST OPHT DROP 2.5 ML BOTTLE OP SCH (20:30)
--- NOTE | 2020-06-05 01:54 | NUR ---
awake alert and oriented x4. Back incision TRANSMITTER CHIEF needs attended. LSO brace when OOB. No acute distress noted. Will monitor patient. Kept comfortable. Compliant with meds. Denies any pain at this time. Will monitor patient. VSS.
[2020-06-05] MEDS: OXYCODONE HCL 5 MG TABLET PO PRN ×3 (04:19→17:04)
[2020-06-05 04:40] VITALS: BP 110/69
--- NOTE | 2020-06-05 06:46 | NUR ---
End of shift notes: slept well most of the shift. needs attended. medicated for pain as ordered. relief noted. Voiding well.
[2020-06-05 08:49] VITALS: BP 123/71
[2020-06-05] MEDS: METFORMIN XR 500 MG TAB.SR.24H PO SCH (08:56)
[2020-06-05] MEDS: OXCARBAZEPINE 150 MG TABLET PO SCH ×2 (08:56→16:27)
[2020-06-05] MEDS: FLUOXETINE HCL 20 MG CAPSULE PO SCH (08:57)
[2020-06-05] MEDS: AMLODIPINE 5 MG TABLET PO SCH (08:57)
[2020-06-05] MEDS: PANTOPRAZOLE SODIUM 40 MG TABLET.DR PO SCH ×2 (08:57→16:27)
[2020-06-05] MEDS: TAMSULOSIN HCL 0.4 MG CAP.SR.24H PO SCH ×2 (08:57→16:27)
[2020-06-05] MEDS: GABAPENTIN 300 MG CAPSULE PO SCH ×2 (08:57→16:27)
[2020-06-05] MEDS: FERROUS SULFATE 325 MG TABEC PO SCH ×2 (08:57→20:47)
[2020-06-05] MEDS: ACIDOPHILUS/BULGARICUS CHEW TAB PO SCH ×2 (08:57→16:27)
[2020-06-05] MEDS: CARVEDILOL 6.25 MG TABLET PO SCH ×2 (08:57→17:04)
[2020-06-05] MEDS: MORPHINE SULFATE SR 15 MG TABLET.SA PO SCH ×2 (08:58→20:48)
[2020-06-05 15:40] VITALS: BP 130/71
[2020-06-05 20:25] VITALS: BP 107/73
[2020-06-05] MEDS: LORATADINE 10 MG TABLET PO SCH (20:47)
[2020-06-05] MEDS: MELATONIN 3 MG TABLET PO SCH (20:47)
[2020-06-05] MEDS: ATORVASTATIN 40 MG TABLET PO SCH (20:48)
[2020-06-05] MEDS: FINASTERIDE 5 MG TABLET PO SCH (20:48)
[2020-06-05] MEDS: LATANOPROST OPHT DROP 2.5 ML BOTTLE OP SCH (20:52)
--- NOTE | 2020-06-05 22:30 | NUR ---
Awake alert and oriented x3-4 Watching TV upon initial rounds. Had a large BM this shift. voiding well. No distress noted. Kept comfortable. Attended to needs and met. No complaints presented so far.
[2020-06-06 04:50] VITALS: BP 108/64
[2020-06-06] MEDS: FERROUS SULFATE 325 MG TABEC PO SCH ×2 (08:00→20:27)
[2020-06-06] MEDS: FLUOXETINE HCL 20 MG CAPSULE PO SCH (08:00)
[2020-06-06] MEDS: AMLODIPINE 5 MG TABLET PO SCH (08:00)
[2020-06-06] MEDS: MORPHINE SULFATE SR 15 MG TABLET.SA PO SCH ×2 (08:00→20:27)
[2020-06-06] MEDS: OXCARBAZEPINE 150 MG TABLET PO SCH ×3 (08:01→17:29)
[2020-06-06] MEDS: TAMSULOSIN HCL 0.4 MG CAP.SR.24H PO SCH ×2 (08:01→16:25)
[2020-06-06] MEDS: PANTOPRAZOLE SODIUM 40 MG TABLET.DR PO SCH ×2 (08:01→16:25)
[2020-06-06] MEDS: GABAPENTIN 300 MG CAPSULE PO SCH ×2 (08:01→16:25)
[2020-06-06] MEDS: CARVEDILOL 6.25 MG TABLET PO SCH ×2 (08:01→17:30)
[2020-06-06] MEDS: ACIDOPHILUS/BULGARICUS CHEW TAB PO SCH ×2 (08:01→16:25)
[2020-06-06] MEDS: METFORMIN XR 500 MG TAB.SR.24H PO SCH (08:01)
[2020-06-06 08:12] VITALS: BP 105/65
[2020-06-06] MEDS ORDERED: EPOETIN ALFA 10,000 UNITS/ML VIAL SQ ONE (14:00)
[2020-06-06] MEDS: OXYCODONE HCL 5 MG TABLET PO PRN (14:03)
[2020-06-06 15:21] VITALS: BP 125/68
--- NOTE | 2020-06-06 15:32 | NUR ---
no changes noted at this time, patient like to stay most of the time in the bed, tran, rude and does not like to sit in chair longer, does not like to reposition, explained risks and benefits, skin inspected, intact, both heels inspected intact no issues noted, floated on pillows.
--- NOTE | 2020-06-06 17:48 | NUR ---
covid test need to be done on Wednesday, patient is discharging wednesday Addendum: 06/06/20 at 1750 by HUEY LÓPEZ RN, RN order is in place, will endorse accordingly
[2020-06-06] MEDS: MELATONIN 3 MG TABLET PO SCH (20:27)
[2020-06-06] MEDS: FINASTERIDE 5 MG TABLET PO SCH (20:27)
[2020-06-06] MEDS: LORATADINE 10 MG TABLET PO SCH (20:27)
[2020-06-06] MEDS: ATORVASTATIN 40 MG TABLET PO SCH (20:28)
[2020-06-06] MEDS: LATANOPROST OPHT DROP 2.5 ML BOTTLE OP SCH (20:28)
[2020-06-06 21:06] VITALS: BP 109/70
--- NOTE | 2020-06-06 21:18 | NUR ---
watching TV upon initial rounds. AAOx4 needs attended. VSS. possible d/c on Wednesday(06/09) All due meds given. No acute distress noted. Voiding well in the urinal. Will monitor patient. Lower back incision healing. Kept comfortable.
[2020-06-07] MEDS: OXYCODONE HCL 5 MG TABLET PO PRN ×3 (03:53→17:53)
[2020-06-07 04:50] VITALS: BP 117/72
--- NOTE | 2020-06-07 06:27 | NUR ---
End of shift notes: Pain meds given as needed for low back pain. AAOx4 No distress noted. Slept well most of the night. VSS. All needs attended and met. Voiding well. Siderails up for safety.
[2020-06-07] MEDS: MORPHINE SULFATE SR 15 MG TABLET.SA PO SCH ×2 (08:06→20:00)
[2020-06-07] MEDS: ACIDOPHILUS/BULGARICUS CHEW TAB PO SCH ×2 (08:07→16:40)
[2020-06-07] MEDS: TAMSULOSIN HCL 0.4 MG CAP.SR.24H PO SCH ×2 (08:07→16:40)
[2020-06-07] MEDS: AMLODIPINE 5 MG TABLET PO SCH (08:08)
[2020-06-07] MEDS: PANTOPRAZOLE SODIUM 40 MG TABLET.DR PO SCH ×2 (08:08→16:40)
[2020-06-07] MEDS: FERROUS SULFATE 325 MG TABEC PO SCH ×2 (08:08→20:00)
[2020-06-07] MEDS: FLUOXETINE HCL 20 MG CAPSULE PO SCH (08:08)
[2020-06-07] MEDS: CARVEDILOL 6.25 MG TABLET PO SCH ×2 (08:10→17:08)
[2020-06-07] MEDS: GABAPENTIN 300 MG CAPSULE PO SCH ×2 (08:10→16:40)
[2020-06-07] MEDS: OXCARBAZEPINE 150 MG TABLET PO SCH ×2 (08:11→16:40)
[2020-06-07] MEDS: METFORMIN XR 500 MG TAB.SR.24H PO SCH (08:11)
[2020-06-07 08:19] VITALS: BP 128/74
--- NOTE | 2020-06-07 11:37 | NUR ---
PATIENT STILL IN BED, REFUSED TO GET UP AND SIT IN CHAIR, CONVINCED BY NURSING AND REHAB [facility], PATIENT KEPT SAYING LATER, OFFERED TO SIT ON COMMODE, EVERYTHING WAS READY, CHANGED HIS MIND AGAIN, AND SAID LATER, DOES NOT WANT TO LAY ON HIS SIDE EITHER, PATIENT HAS MOOD SWINGS, CONVINCED TO FLOAT HIS HEELS ON PILLOWS, SOMETIMES COMPLIANT ONLY, RISKS AND BENEFITS EXPLAINED, PATIENT VERBALIZED UNDERSTANDING OF IT. CONTINUE TO CONVINCE.
[2020-06-07 12:40] LABS: BASOPHILS # (AUTO) 0.1 K/uL (0.0-8.0); BASOPHILS % (AUTO) 0.7 % (0.0-2.0); EOSINOPHILS # (AUTO) 0.2 K/uL (0.0-0.7); EOSINOPHILS % (AUTO) 2.7 % (0.0-7.0); HEMATOCRIT 27.2 % (36.7-47.1); HEMOGLOBIN 8.9 g/dL (12.5-16.3); LYMPHOCYTES # (AUTO) 1.4 K/uL (20.0-40.0); LYMPHOCYTES % (AUTO) 18.9 % (20.5-51.5); MEAN CORPUSCULAR HEMOGLOBIN 29.1 uug (23.8-33.4); MEAN CORPUSCULAR HGB CONC 33 g/dL (32.5-36.3); MEAN CORPUSCULAR VOLUME 89.1 fL (73.0-96.2); MONOCYTES # (AUTO) 0.8 K/uL (2.0-10.0); MONOCYTES % (AUTO) 10.6 % (0.0-11.0); NEUTROPHILS % (AUTO) 67.1 % (38.5-71.5); PLATELET COUNT (AUTO) 475 K/uL (152-348); RED BLOOD CELL COUNT(AUTO) 3.05 MIL/uL (4.06-5.63); WHITE BLOOD COUNT (AUTO) 7.5 K/uL (3.6-10.2)
[2020-06-07 12:47] LABS: CREATININE 1.2 mg/dL (0.6-1.3); MAGNESIUM 1.6 mg/dL (1.8-2.4); PHOSPHOROUS 3.7 mg/dL (2.5-4.9)
[2020-06-07 15:30] VITALS: BP 111/69
[2020-06-07] MEDS ORDERED: MAGNESIUM SULFATE/D5W 100 ML IV SCH (16:30)
--- NOTE | 2020-06-07 16:43 | NUR ---
patient refused to have an magnesium IV administration, explained benefits and risks, patient verbalized understanding of it, and still refused and stated he does not want in IV form, and he does not want the IV access to be started. Addendum: 06/07/20 at 1649 by HUEY LÓPEZ RN, RN REPLACED MAGNESIUM ORALLY
[2020-06-07] MEDS ORDERED: MAGNESIUM OXIDE 400 MG TABLET PO ONE (16:45)
--- NOTE | 2020-06-07 18:56 | NUR ---
OFFERED PATIENT REPOSITIONING AND FLOATING HEELS ON PILLOWS, PATIENT REFUSED, RISKS AND BENEFITS EXPLAINED, EXPLAINED ABOUT POTENTIAL FOR SKIN BREAKDOWN, PATIENT STILL REFUSED. PATIENT RIGHT TO REFUSE RESPECTED.
--- NOTE | 2020-06-07 19:37 | NUR ---
INTERDISCIPLINARY TEAM CONFERENCE
[2020-06-07] MEDS: FINASTERIDE 5 MG TABLET PO SCH (20:00)
[2020-06-07] MEDS: LORATADINE 10 MG TABLET PO SCH (20:00)
[2020-06-07] MEDS: MELATONIN 3 MG TABLET PO SCH (20:00)
[2020-06-07] MEDS: ATORVASTATIN 40 MG TABLET PO SCH (20:00)
[2020-06-07] MEDS: LATANOPROST OPHT DROP 2.5 ML BOTTLE OP SCH (20:01)
[2020-06-07 20:16] VITALS: BP 113/67
[2020-06-08] MEDS: OXYCODONE HCL 5 MG TABLET PO PRN ×3 (04:08→17:46)
[2020-06-08 05:09] VITALS: BP 130/73
--- NOTE | 2020-06-08 05:14 | NUR ---
Patient slept well through tonight. Requested pain medication, administered PRN, effective. Multiple attempts to float patient heels but pt keeps moving pillow away. All needs attended too. No new changes. Safety measures in place, will endorse report to next shift.
[2020-06-08 07:52] VITALS: BP 116/69
[2020-06-08] MEDS: PANTOPRAZOLE SODIUM 40 MG TABLET.DR PO SCH ×2 (08:53→16:32)
[2020-06-08] MEDS: AMLODIPINE 5 MG TABLET PO SCH (08:53)
[2020-06-08] MEDS: GABAPENTIN 300 MG CAPSULE PO SCH ×2 (08:53→16:32)
[2020-06-08] MEDS: CARVEDILOL 6.25 MG TABLET PO SCH ×2 (08:53→17:22)
[2020-06-08] MEDS: ACIDOPHILUS/BULGARICUS CHEW TAB PO SCH ×2 (08:53→16:31)
[2020-06-08] MEDS: FERROUS SULFATE 325 MG TABEC PO SCH ×2 (08:54→21:40)
[2020-06-08] MEDS: TAMSULOSIN HCL 0.4 MG CAP.SR.24H PO SCH ×2 (08:54→16:31)
[2020-06-08] MEDS: FLUOXETINE HCL 20 MG CAPSULE PO SCH (08:54)
[2020-06-08] MEDS: OXCARBAZEPINE 150 MG TABLET PO SCH ×2 (08:58→16:32)
[2020-06-08] MEDS: METFORMIN XR 500 MG TAB.SR.24H PO SCH (08:58)
[2020-06-08] MEDS: MORPHINE SULFATE SR 15 MG TABLET.SA PO SCH ×2 (09:03→21:41)
--- NOTE | 2020-06-08 11:58 | NUR ---
Patient complained of constipation, offered existing PRN Senokot and PRN Bisacodyl suppository orders but patient refused. Informed Dr. Harmon and ordered Milk of Magnesia 30ml PO daily PRN.
[2020-06-08] MEDS: MAGNESIUM HYDROXIDE 30 ML LIQUID UDC PO PRN (13:33)
[2020-06-08 15:20] VITALS: BP 141/73
[2020-06-08] MEDS: LATANOPROST OPHT DROP 2.5 ML BOTTLE OP SCH (21:39)
[2020-06-08] MEDS: ATORVASTATIN 40 MG TABLET PO SCH (21:40)
[2020-06-08] MEDS: MELATONIN 3 MG TABLET PO SCH (21:40)
[2020-06-08] MEDS: LORATADINE 10 MG TABLET PO SCH (21:40)
[2020-06-08] MEDS: FINASTERIDE 5 MG TABLET PO SCH (21:41)
[2020-06-08 21:45] VITALS: BP 118/69
[2020-06-09 04:40] VITALS: BP 103/57
[2020-06-09] MEDS: OXYCODONE HCL 5 MG TABLET PO PRN ×2 (05:03→14:17)
[2020-06-09] MEDS: MAGNESIUM HYDROXIDE 30 ML LIQUID UDC PO PRN (06:20)
[2020-06-09] MEDS: ACIDOPHILUS/BULGARICUS CHEW TAB PO SCH ×2 (08:56→17:49)
[2020-06-09] MEDS: PANTOPRAZOLE SODIUM 40 MG TABLET.DR PO SCH ×2 (08:56→17:49)
[2020-06-09] MEDS: FLUOXETINE HCL 20 MG CAPSULE PO SCH (08:56)
[2020-06-09] MEDS: TAMSULOSIN HCL 0.4 MG CAP.SR.24H PO SCH ×2 (08:57→17:49)
[2020-06-09] MEDS: FERROUS SULFATE 325 MG TABEC PO SCH (08:57)
[2020-06-09] MEDS: GABAPENTIN 300 MG CAPSULE PO SCH ×2 (08:57→17:49)
[2020-06-09] MEDS: OXCARBAZEPINE 150 MG TABLET PO SCH ×2 (08:57→17:54)
[2020-06-09] MEDS: METFORMIN XR 500 MG TAB.SR.24H PO SCH (08:58)
[2020-06-09] MEDS: AMLODIPINE 5 MG TABLET PO SCH (09:00)
[2020-06-09] MEDS: CARVEDILOL 6.25 MG TABLET PO SCH ×2 (09:02→17:50)
[2020-06-09] MEDS: BACLOFEN 10 MG TABLET PO PRN (09:03)
[2020-06-09] MEDS: MORPHINE SULFATE SR 15 MG TABLET.SA PO SCH (09:03)
[2020-06-09 12:00] VITALS: BP 117/74
[2020-06-09 16:02] VITALS: BP 113/68
--- NOTE | 2020-06-09 17:11 | NUR ---
Covid19 negative results called in from lab, awaiting official lab paperwork to fax to receiving facility to continue with D/C.
[2020-06-09 17:50] VITALS: BP 113/68
--- NOTE | 2020-06-09 19:40 | NUR ---
Discharge order received, paperwork completed, reviewed, signed, and copies placed in chart. Rx reviewed with Pt. Pt teaching provided along with routine medications to Pt. No home medications to return at this time. VSS. All discharge concerns addressed. Follow up orders discussed with Pt. Report called in to [place], acknowledging acceptance of patient once Covid19 negative results faxed over. Covid19 negative results faxed over. Pt belongings and money from safe, accounted for , signed, and returned to Pt. Pt refused skin integrity photos. Report given to horticulture superintendent, and Pt safely transferred out of hospital. Will remove Pt from system shortly.
== END 2020-06-09 19:00 | disposition home health service (06) | DRG 560 ==
PROVIDERS: ADMIT Physical Medicine & Rehabilitation Pain Medicine; ATTEND Physical Medicine & Rehabilitation Pain Medicine
DX: Z47.89 Encounter for other orthopedic aftercare (principal); N17.9 Acute kidney failure, unspecified; G93.40 Encephalopathy, unspecified; D64.9 Anemia, unspecified; M51.16 Intervertebral disc disorders with radiculopathy, lumbar region; I10 Essential (primary) hypertension; T46.4X5D Adverse effect of angiotensin-converting-enzyme inhibitors, subsequent encounter; E11.22 Type 2 diabetes mellitus with diabetic chronic kidney disease; N18.9 Chronic kidney disease, unspecified; J44.9 Chronic obstructive pulmonary disease, unspecified; I12.9 Hypertensive chronic kidney disease with stage 1 through stage 4 chronic kidney disease, or unspecified chronic kidney disease; E86.9 Volume depletion, unspecified; F32.9 Major depressive disorder, single episode, unspecified; G47.30 Sleep apnea, unspecified; M89.8X9 Other specified disorders of bone, unspecified site; Z88.8 Allergy status to other drugs, medicaments and biological substances; R32 Unspecified urinary incontinence; G89.29 Other chronic pain; M48.062 Spinal stenosis, lumbar region with neurogenic claudication; Z82.49 Family history of ischemic heart disease and other diseases of the circulatory system; Z83.3 Family history of diabetes mellitus
CPT/HCPCS: 36415; 82652; 83550; 83735; 83970; 84100; 85025; 94640; J0885; J2916; J3490; J3590; J7040